=== PATIENT | female | born 1965 | race American Indian/Alaskan Native ===

== ENCOUNTER 2022-06-02 02:37 | Emergency (ER) | payer SELFPAY ==
[2022-06-02] MEDS ORDERED: LIDOCAINE 1% W/EPI 1:100,000 MDV 50 ML VIAL ONE (02:55)
--- NOTE | 2022-06-02 03:16 | EDPHYS ---
Physician Documentation [facility] Name: Sarah Strickland Age: 57 yrs Sex: Female : 1965 Arrival Date: 06/02/2022 Time: 02:39 Bed 20 Private MD: ED Physician Sotero Shirley HPI: 06/02 02:48 This 57 yrs old Female presents to ER via Unassigned with complaints of Ear Injury. ms3 02:48 This 57 yrs old Female presents to ER via Unassigned with complaints of facial abscess. ms3 02:49 The patient's rash thought to be caused by abscess. The rash is located on the left ms3 parietal scalp. The rash can be described as erythematous. Onset: The symptoms/episode began/occurred 2 day(s) ago. Associated signs and symptoms: Pertinent positives: Pain Pertinent negatives: fever. Severity of symptoms: Pain is currently a 9 / 10. Treatment given at home: Warm compress. Historical: - Allergies: 02:54 No Known Allergies; tw5 - Home Meds: 02:54 None [Active]; tw5 - PMHx: 02:54 None; tw5 - PSHx: 02:54 None; tw5 - Immunization history:: Flu vaccine is not up to date. - Social history:: Smoking status: Patient reports the use of cigarette tobacco products, smokes one pack cigarettes per day. ROS: 02:49 Constitutional: Negative for fever, and chills. Neck: Negative for injury, pain, and ms3 swelling, Cardiovascular: Negative for chest pain, and palpitations. Respiratory: Negative for shortness of breath, cough, wheezing, and pleuritic chest pain, Abdomen/GI: Negative for abdominal pain, nausea, vomiting, diarrhea, and constipation, MS/Extremity: Negative for injury and deformity. 02:49 Skin: Positive for abscess. 02:49 All other systems are negative. Exam: 02:49 Constitutional: This is a well developed, well nourished patient who is awake, alert, ms3 and in no acute distress. Neck: Trachea midline, no cervical lymphadenopathy. Supple, full range of motion without nuchal rigidity, or vertebral point tenderness. No Meningismus. Chest/axilla: Normal chest wall appearance and motion. Nontender with no deformity. Cardiovascular: Regular rate and rhythm with a normal S1 and S2. No gallops, murmurs, or rubs. Normal PMI, no JVD. No pulse deficits. Respiratory: Lungs have equal breath sounds bilaterally, clear to auscultation and percussion. No rales, rhonchi or wheezes noted. No increased work of breathing, no retractions or nasal flaring. Abdomen/GI: Soft, non-tender, with normal bowel sounds. No distension or tympany. No guarding or rebound. No evidence of tenderness throughout. 02:49 Skin: abscess, that is moderate sized, approximately 4 cm(s), of the Left parietal scalp, with fluctuance, that is moderate, with induration, with pointing, that is obvious, with surrounding cellulitis, that is moderate. Vital Signs: 02:52 BP 133 / 88; Pulse 85; Resp 20; Temp 98.9(O); Pulse Ox 100% ; Weight 54.43 kg; Height 4 tw5 ft. 11 in. (149.86 cm); Pain 9/10; 02:52 Body Mass Index 24.24 (54.43 kg, 149.86 cm) tw5 Procedures: 03:01 I \T\ D: Incision and drainage was performed for an abscess of the right Right parietal ms3 scalp Prepped with alcohol, Anesthetized with 4 ml's 1% Lidocaine w/ Epi. Incised with #11 blade. Drained moderate amount purulent fluid. Packed with iodoform gauze, Dressing: sterile 4x4 gauze, the patient tolerated the procedure well. MDM: 02:48 Patient medically screened. ms3 02:49 Differential diagnosis: abscess vs cellulitis. ms3 03:01 Data reviewed: vital signs, nurses notes, and as a result, I will discharge patient. ms3 Counseling: I had a detailed discussion with the patient and/or guardian regarding: the historical points, exam findings, and any diagnostic results supporting the discharge/admit diagnosis, the need for outpatient follow up, to return to the emergency department if symptoms worsen or persist or if there are any questions or concerns that arise at home. ED course: Discussed performing I\T\D with patient. Discussed possibility of pain, damage to surrounding structures, or worsening infection. Patient wishes to have I\T\D performed in ED after understanding and accepting risks. Discussed physical exam findings with patient. Patient to follow-up with primary care physician in 2 to 3 days. Patient understands and agrees with plan. All questions were answered. Return precautions discussed include worsening symptoms, or any other concerns. On reevaluation patient is alert and oriented x4, in no apparent distress, nontoxic-appearing, speaking full sentences, ambulatory in emergency department, incision hemostatic . Administered Medications: No medications were administered Disposition Summary: 06/02/22 03:16 Discharge Ordered Location: Home ms3 Condition: Stable ms3 Diagnosis - scalp abscess ms3 Followup: ms3 - With: Perico Milian DO - When: 2 - 3 days - Reason: Recheck today's complaints Discharge Instructions: - Discharge Summary Sheet ms3 - Skin Abscess ms3 Forms: - Medication Reconciliation Form ms3 - Thank You Letter ms3 - Antibiotic Education ms3 - Prescription Opioid Use ms3 Prescriptions: - Doxycycline Hyclate 100 mg Oral Tablet - take 1 tablet by ORAL route every 12 hours; 20 tablet; Refills: 0, Product ms3 Selection Permitted Signatures: Sotero Shirley DO DO ms3 Jazmyn Joseph tw5
--- NOTE | 2022-06-02 03:16 | ER ---
Nurse's Notes [facility] Name: Sarah Strickland Age: 57 yrs Sex: Female : 1965 Arrival Date: 06/02/2022 Time: 02:39 Bed 20 Private MD: Diagnosis: scalp abscess Presentation: 06/02 02:52 Chief complaint: Patient states: "I have had this abscess behind by my ear, but it has tw5 gotten worse over the past couple of days. I have tried hot compresses, but they have not worked.". Coronavirus screen: Vaccine status: Patient reports being unvaccinated. Ebola Screen: Patient negative for fever greater than or equal to 101.5 degrees Fahrenheit, and additional compatible Ebola Virus Disease symptoms Patient denies exposure to infectious person. Patient denies travel to an Ebola-affected area in the 21 days before illness onset. Initial Sepsis Screen: Does the patient meet any 2 criteria? No. Patient's initial sepsis screen is negative. Does the patient have a suspected source of infection? Yes: Skin breakdown/wound. Risk Assessment: Do you want to hurt yourself or someone else? Patient reports no desire to harm self or others. Onset of symptoms is unknown. 02:52 Method Of Arrival: Ambulatory tw5 02:52 Acuity: TILA 4 tw5 Triage Assessment: 02:54 General: Appears uncomfortable, Behavior is calm, cooperative, appropriate for age. tw5 Pain: Pain currently is 9 out of 10 on a pain scale. Historical: - Allergies: 02:54 No Known Allergies; tw5 - Home Meds: 02:54 None [Active]; tw5 - PMHx: 02:54 None; tw5 - PSHx: 02:54 None; tw5 - Immunization history:: Flu vaccine is not up to date. - Social history:: Smoking status: Patient reports the use of cigarette tobacco products, smokes one pack cigarettes per day. Screenin:19 Abuse screen: Denies threats or abuse. Denies injuries from another. Nutritional kd3 screening: No deficits noted. Tuberculosis screening: No symptoms or risk factors identified. Fall Risk None identified. Vital Signs: 02:52 BP 133 / 88; Pulse 85; Resp 20; Temp 98.9(O); Pulse Ox 100% ; Weight 54.43 kg; Height 4 tw5 ft. 11 in. (149.86 cm); Pain 9/10; 02:52 Body Mass Index 24.24 (54.43 kg, 149.86 cm) tw5 ED Course: 02:39 Patient arrived in ED. ja2 02:39 Sotero Shirley DO is Attending Physician. ms3 02:51 Radha Thornton, RN is Primary Nurse. kd3 02:54 Triage completed. tw5 02:54 Arm band placed on right wrist. Patient placed in an exam room. tw5 03:15 Perico Milian DO is Referral Physician. ms3 03:19 Patient has correct armband on for positive identification. kd3 03:19 No provider procedures requiring assistance completed. Patient did not have IV access kd3 during this emergency room visit. Administered Medications: No medications were administered Medication: 03:19 VIS not applicable for this client. kd3 Outcome: 03:16 Discharge ordered by MD. ms3 03:19 Discharged to home ambulatory. kd3 03:19 Condition: stable 03:19 Discharge instructions given to patient, family, Instructed on discharge instructions, follow up and referral plans. medication usage, Demonstrated understanding of instructions, follow-up care, medications. 03:25 Patient left the ED. kd3 Signatures: Sotero Shirley DO DO ms3 Marisol Moreno ja2 Jazmyn Joseph tw5 Radha Thornton, COOPER RN kd3
[2022-06-02 03:38] VITALS: BP 133/88; TEMP 98.9; O2SAT 100
== END 2022-06-02 03:25 | disposition home or self-care (01) ==
LOC: ER 02:37
PROC: 0H90XZZ Drainage of Scalp Skin, External Approach (ICD-10-PCS; principal; 2022-06-02)
DX: L02.811 Cutaneous abscess of head [any part, except face] (principal); F17.210 Nicotine dependence, cigarettes, uncomplicated
CPT/HCPCS: 99281